=== PATIENT | female | born 1980 | race Caucasian/White ===

== ENCOUNTER 2018-08-02 19:49 | Emergency (ER) | payer BC ==
[~2018-08-02] VITALS: Ht 170.2 cm; Wt 123.6 kg
[2018-08-02] MEDS ORDERED: acetaminophen 325mg tablet PO ONE (20:25)
[2018-08-02] MEDS ORDERED: cyclobenzaprine 10mg tablet PO ONE (20:25)
[2018-08-02] MEDS ORDERED: LIDOcaine 5% patch TP ONE (20:25)
[2018-08-02] MEDS ORDERED: ketorolac trometh inj. 60 MG/2 ML VIAL IM ONE (20:25)
[2018-08-02] MEDS ORDERED: HYDROcodone/acetaminophen 5mg/325mg tablet PO ONE (20:25)
[2018-08-02] MEDS ORDERED: ondansetron 4mg rapidly disintigrating tab PO ONE (20:25)
[2018-08-02 21:46] LABS: CLARITY,URINE SLIGHTLY CLOUDY (Clear); COLOR,URINE YELLOW (Yellow); GLUCOSE, URINE NEGATIVE (Neg); KETONES,URINE 15 mg/dl (Neg); LEUKOCYTE ESTERASE ,URINE NEGATIVE (Neg); NITRITES, URINE NEGATIVE (Neg); OCCULT BLOOD,URINE NEGATIVE (Neg); PROTEIN,URINE TRACE mg/dl (Neg)
[2018-08-02 21:51] LABS: UA COLLECTION TYPE CLN CATCH MIDSTREAM
[2018-08-02 21:54] LABS: AMORPHOUS URATES 1+; BACTERIA,URINE 1+ /HPF (Neg); MUCUS STRANDS MODERATE /LPF (Neg); RBC,URINE NONE SEEN /HPF (0-2); SQUAMOUS EPITHELIAL CELL,UR MODERATE /LPF (FEW); WBC,URINE 0-4 /HPF (0-4)
[2018-08-02 21:55] LABS: CAL OXALATE CRYSTALS 3+ /HPF (NEGATIVE)
[2018-08-02] MEDS ORDERED: DICL100G15 TOP (22:01)
[2018-08-02] MEDS ORDERED: HYDR-3965 PO (22:01)
[2018-08-02] MEDS ORDERED: LIDO700A32 TOP (22:01)
[2018-08-02] MEDS ORDERED: CYCL-1 PO (22:01)
[2018-08-02 22:36] VITALS: BP 116/47
== END 2018-08-02 22:39 | disposition home or self-care (01) ==
LOC: ER 19:50
DX: M54.6 Pain in thoracic spine (principal); R06.00 Dyspnea, unspecified; K50.90 Crohn's disease, unspecified, without complications; Z79.899 Other long term (current) drug therapy; X58.XXXA Exposure to other specified factors, initial encounter; Y93.67 Activity, basketball; Y92.89 Other specified places as the place of occurrence of the external cause; Y99.8 Other external cause status
CPT/HCPCS: 81001; 96372; 99284; J1885